=== PATIENT | male | born 1945 | race Caucasian/White ===

== ENCOUNTER 2021-07-22 16:18 | Emergency (ER) | payer MEDICARE, SELFPAY ==
[2021-07-22 16:21] VITALS: BP 161/85; PULSE 87; RESP 14; TEMP 36.4; O2SAT 96; BMI 33.2
--- NOTE | 2021-07-22 16:30 | XR_ITS ---
WS: [id number] XR hand LT min 3V* [id number] REASON FOR EXAM: laceration, left index finger FINDINGS: Soft tissue disruption medial aspect of the tip of the index finger. There is fragmentation of the un derlying tuft of the distal phalanx of the index finger. No radiopaque foreign body. XR/XR hand LT min 3V* [id number] IMPRESSION: Soft tissue disruption with adjacent tuft fracture.
--- NOTE | 2021-07-22 16:30 | W.ED.WOUNDLC ---
HPI - Wound/Laceration General: Chief Complaint: Wound/Laceration Stated Complaint: L HAND LAC Time Seen by Provider: 07/22/21 16:28 History of Present Illness: HPI narrative: Patient sustained a laceration when he got his left finger into the blade of a table saw a few minutes ago. Onset (ago): minute(s) Extremity Location: Left: hand Place: home Patient tetanus UTD: No Context: accidental Associated symptoms: Reports no associated symptoms; Denies chills or fever(s) Treatments prior to arrival: bandage Review of Systems Const: Denies: fever(s) or chills Card: Denies: chest pain Skin/Breast: Reports: other (Laceration left index finger, involved in table saw accident) Psych: Denies: anxiety Physical Exam Const: COMMON NORMALS: no acute distress GENERAL APPEARANCE: cooperative Resp: COMMON NORMALS: normal respiratory effort Extremity: LEFT UPPER EXTREMITY: Yes hand & digits (Index finger with avulsion type injury, neurovascular intact) Psych: COMMON NORMALS: mental status grossly normal Procedures Laceration Laceration 1: Site: hand Side (If applicable): left Description: irregular Depth: [id number] Local Anesthetic: lidocaine 1% Amount of anesthesia used (mL): 3 Pre-repair: wound explored, irrigated extensively, deep structures intact and wound margins revised Skin layer closed with: nylon Size (cm): 4-0 Number of sutures: 10 Technique: simple, interrupted Course Vital Signs: Vital signs: Vital Signs Temperature 97.6 F 07/22/21 16:21 Pulse Rate 87 07/22/21 16:21 Respiratory Rate 14 07/22/21 16:21 Blood Pressure 161/85 07/22/21 16:21 Pulse Oximetry 96 07/22/21 16:21 MDM - Wound/Laceration MDM Narrative: Medical decision making narrative: Patient presents with laceration from table saw blade left index finger. Patient sustained a small tuft fracture and has avulsion/laceration to medial aspect of end of left index finger, looks kind of chewed up. Is very difficult to bring all wound edges together. But wound was able to be somewhat closed, and leave open also since his open fracture and dressing was done and splint placed and patient was given appoint for follow-up in orthopedic clinic Discharge Plan Discharge Patient Disposition: Home Clinical Impression: Laceration, Open fracture of tuft of distal phalanx of finger Condition: Stable Prescriptions: New clindamycin HCl 300 mg capsule 300 mg PO Q8H 7 Days Qty: 21 RF: 0 hydrocodone-acetaminophen 5-325 mg tablet 1 tab PO TID PRN (Reason: pain) Qty: 14 RF: 0 hydrocodone-acetaminophen 5-325 mg tablet 1 tab PO Q8H PRN (Reason: pain) Qty: 14 RF: 0 Discharge Orders: Discharge ED (Routine); Ordered 07/22/21 Ordered By: Francois Henning Discharge Diet: Usual diet Discharge Activity: Increase activity as tolerated Patient Instructions: Care For Your Stitches (ED), Laceration (ED) Activity Restrictions/Additional Instructions: Follow-up with medical provider as directed. Take medications as prescribed. Return to the ER or your medical provider if condition worsens. Please read and understand discharge instructions. If any questions ask please. Sutures out in 7 days. Can cover wound with Vaseline or petroleum jelly. Change dressing daily. Any signs infection follow-up here at the ER or see your primary care provider. Coding Level of Care Code ED Field Organizer for Glynn Fwchris Exam Expanded Problem Focused
[2021-07-22] MEDS: tetanus-diphtheria tox (adult) 0.5 mL SDV IM (16:43)
[2021-07-22] MEDS: lidocaine 1% INJ 20 mL INTRADERMA (16:43)
--- NOTE | 2021-07-26 10:11 | DCPLANNER ---
cyber workforce developer and manager had message to schedule a follow up appointment for patient with ortho. cyber workforce developer and manager emailed patients information to Ruth Olsen at ortho. Patients information will be printed and reviewed. Clinic will call patient will appointment information.
--- NOTE | 2021-07-27 06:34 | DCPLANNER ---
Addendum entered by Melanie Gonzalez 08/12/21 16:17: Patient had a follow up appointment scheduled for 07.27.[address] Clay at ortho - patient did attend appointment. Original Note: Patient has a follow up appointment scheduled for July 2017 at 9:[address] Clay at ortho. Clinic will call patient with appointment information.
== END 2021-07-22 17:24 | disposition home or self-care (01) ==
PROVIDERS: Emergency Provider Nurse Practitioner Family
DX: S62.631B Displaced fracture of distal phalanx of left index finger, initial encounter for open fracture (principal); W27.0XXA Contact with workbench tool, initial encounter; Z23 Encounter for immunization
CPT/HCPCS: 12002; 73130; 90471; 90714; 99283